=== PATIENT | female | born 1985 | race Caucasian/White ===

== ENCOUNTER → 2021-04-14 | Outpatient (CLI) | payer OTHER ==
--- NOTE | 2021-04-14 15:38 | REP ---
INDICATION: DI DI TWINS. COMPARISON: None. TECHNIQUE: Real-time sonographic evaluation of the gravid uterus performed. FINDINGS: There is a living intrauterine twin gestation, reportedly diamniotic dichorionic. Estimated gestational age is34 weeks 5 days, EDC 05/21/2021. Today's measurements indicate appropriate concordant growth. Fetus a: Presentation: Cephalic Placenta anterior, grade 2, without evidence of placenta previa. heart rate is recorded at 139 beats per minute. Amniotic fluid is subjectively normal. The deepest pocket of fluid surrounding fetus a is 4.1 cm. Biometry chart: BPD: 83 mm, 33 weeks 2 days, 28th percentile. HC: 304 mm, 33 weeks 6 days, 37th percentile AC: 312 mm, 35 weeks 1 days, 57th percentile Femur length: 64 mm, 32 weeks 6 days, 22nd percentile HC to AC ratio: 0.97, normal range 0.94-1.13. Estimated weight: 2372g, 32nd percentile. SD ratio umbilical artery 2.47, normal 1.70-3.62. RI 0.60, normal 0.46-0.72. Fetus b: Presentation: Breech Placenta posterior, grade 2, without evidence of placenta previa. heart rate is recorded at 141 beats per minute. Amniotic fluid is subjectively normal. The deepest pocket of fluid surrounding fetus B is 5.9 cm. Biometry chart: BPD: 84 mm, 33 weeks 5 days, 536th percentile. HC: 309 mm, 34 weeks 4 days, 47th percentile AC: 315 mm, 35 weeks 3 days, 61st percentile Femur length: 63 mm, 32 weeks 4 days, 17th percentile HC to AC ratio: 0.98, normal range 0.94-1.13. Estimated weight: 2413g, 36th percentile. SD ratio umbilical artery 3.46, normal range 1.70-3.62. RI 0.71, normal 0.46-0.72. IMPRESSION: Viable intrauterine twin gestation as above. Appropriate, concordant growth. <Electronically signed by Augustine Prather > 04/14/21 [id number]
== END ==
LOC: M RAD 12:51
PROVIDERS: ATTEND Obstetrics & Gynecology
DX: O30.043 Twin pregnancy, dichorionic/diamniotic, third trimester (principal); Z3A.34 34 weeks gestation of pregnancy; O32.1XX2 Maternal care for breech presentation, fetus 2

== ENCOUNTER 2021-04-25 14:16 | Outpatient (CLI) | payer OTHER ==
[~2021-04-25] VITALS: Ht 170.2 cm; Wt 123.3 kg
[2021-04-25] VITALS (11 sets, daily range): BP systolic 124–148; BP diastolic 72–100
[2021-04-25] MEDS ORDERED: MULT1TAB8 PO (14:57)
[2021-04-25] MEDS ORDERED: PRENTAB9 PO (14:57)
[2021-04-25] MEDS ORDERED: SYNT25TA PO (14:57)
[2021-04-25] MEDS ORDERED: LEVO2TA PO (14:57)
[2021-04-25 16:25] LABS: HEMOGLOBIN 13.5 g/dl (12.0-15.5); MEAN CORPUSCULAR HGB CONC 33.8 g/dl (32.0-36.5); MEAN CORPUSCULAR VOLUME 85.8 fl (80.0-96.0); PLATELET COUNT, AUTOMATED 267 10^3/uL (150-450); RED BLOOD COUNT 4.66 10^6/uL (4.00-5.40); WHITE BLOOD COUNT 7.8 10^3/uL (4.0-10.0)
[2021-04-25 16:35] LABS: ALT/SGPT 13 U/L (12-78); BILIRUBIN,TOTAL 0.7 MG/DL (0.2-1.0); CREATININE FOR GFR 0.61 MG/DL (0.55-1.30); GLOMERULAR FILTRATION RATE > 60.0 (>60); LDH LACTATE DEHYDROGENASE 174 U/L (84-246); URIC ACID 8.2 MG/DL (2.6-6.0)
[2021-04-25 17:13] LABS: CREATININE,RANDOM URINE 20.7 MG/DL; TOTAL PROTEIN,RANDOM URINE < 5.0 MG/DL (0.0-12.0)
--- NOTE | 2021-04-25 18:12 | IPNPDOC ---
Obstetrical Progress Note Date of Service Apr 25, 2021 Subjective 35 yo @ 36W3D who was sent up from clinic for extended monitoring after possible deceel noted during NST in clinic. while in triage for 4hrs, both baby had reactive, CAT Tracing, with A FHT 140, B FHT 125. Patient was also noted to have mild range bp, not meeting GHTN Criteria yet, but Pre e labs were sent and were wnl. she was noted to have irregular contractions, that she is not feeling. patient has no other concerns. she has her Next OB appointment tomorrow. Exam A-FHT: 140, Mod jcarlos,+accels, -decel---cat I tracing B-FHT: 12, MOV JCARLOS,+accels, -decel---cat I tracing [place]: irregular contractions BP: Multiple Mild range BP, NOT 4 hrs Apart A/P 35 yo @ 36W3D who was sent up from clinic for extended monitoring after possible deceel noted during NST in clinic. while in triage for 4hrs, both baby had reactive, CAT Tracing, with A FHT 140, B FHT 125. NORMAL pre e labs obtained. Given strict return precautions F/u in clinic as previously scheduled Objective Vital Signs Date Time Temp Pulse Resp B/P (MAP) Pulse Ox O2 Delivery O2 Flow Rate FiO2 04/25/21 16:05 111 18 124/85 (98) 04/25/21 14:49 99.1 CHRIS AVITIA MD Apr 25, 2021 18:12
== END 2021-04-25 18:14 | disposition home or self-care (01) ==
LOC: M LDO 14:16
PROVIDERS: ATTEND Registered Nurse Maternal Newborn
DX: O36.8330 Maternal care for abnormalities of the fetal heart rate or rhythm, third trimester, not applicable or unspecified (principal); Z3A.36 36 weeks gestation of pregnancy; O26.893 Other specified pregnancy related conditions, third trimester; R03.0 Elevated blood-pressure reading, without diagnosis of hypertension
CPT/HCPCS: 36415; 59025; 82247; 82565; 82570; 83615; 84156; 84450; 84460; 84550; 85027; G0378; G0463

== ENCOUNTER 2021-05-07 21:50 | Outpatient (CLI) | payer OTHER ==
[~2021-05-07] VITALS: Ht 170.2 cm; Wt 123.6 kg
[~2021-05-07 21:50] MED LIST: LEVO2TA PO; MULT1TAB8 PO; PRENTAB9 PO; SYNT25TA PO
[2021-05-07 22:22] VITALS: BP 141/93
[2021-05-07 22:50] VITALS: BP 141/93
[2021-05-08] MEDS ORDERED: HOME MED LIST COMPLETE! XX SCH
--- NOTE | 2021-05-08 06:53 | HPE ---
HISTORY AND PHYSICAL DATE OF ADMISSION: 05/07/2021 HISTORY OF PRESENT ILLNESS: This lady is a 35-year-old 2 para 1, LMP August 14, 2020, EDC May 21, 2021 at 38 weeks of gestation, clearly ruptured membranes. She is a late transfer of care. She has had visits with us, [facility]. She had a previous section in September 2019 at 38 weeks after induction of labor. She had arrest of descent dilated, pushed for three hours, and had a primary section. She also was diagnosed with thyroid cancer, had a thyroidectomy while she was . She is presently on Synthroid and is well-controlled. She had an elevated 1 hour GTT at 156. She has had a 3 hour GGT, fasting was 87, 1 hour was 146, 2 hour 144 and 3 hour was 129. She is GBS positive in the urine and was treated appropriately. PHYSICAL EXAMINATION: On examination today, she has no contractions. She is in no acute distress. She came in with a dry pad. Fundus height is 45. Ultrasound performed, we had Twin A with AIFs in three quadrants of 10.43 with the smallest vertical pocket of 2.96. Twin B on the left, the total fluid 7.90 with the smallest pocket vertical of 2.21. First baby is presenting as vertex, the second baby is transverse lie with the head to the left. Active fetuses on both. Cardiac activity on both were noted. Cervix was closed, posterior and 1-2 cm. Sterile speculum examination: No mucous. No evidence or ruptured membranes. Nitrazine was negative. Slide was negative for ferning. Patient had a reactive strip x2. Patient was counseled regarding premature rupture of membranes, bleeding, decreased movements, and when to call the provider. The patient is electively booked for induction of labor in 24 hours. She is to maintain herself at home and Labor and Delivery will call when a bed is available. Patient expressed an understanding of both. She was discharged undelivered. Her blood pressure was 141/93, respirations 18, pulse 116, temperature 98.5. In summary, we have a term gestation, di-di twins for induction of labor tomorrow with negative ruptured membranes. Patient was discharged undelivered. cc: [facility]
== END 2021-05-07 22:50 | disposition home or self-care (01) ==
LOC: M LDO 21:50
PROVIDERS: ATTEND Obstetrics & Gynecology
DX: O47.1 False labor at or after 37 completed weeks of gestation (principal); Z3A.38 38 weeks gestation of pregnancy; O30.043 Twin pregnancy, dichorionic/diamniotic, third trimester; O34.219 Maternal care for unspecified type scar from previous cesarean delivery
CPT/HCPCS: 59025; 76815; G0378; G0463

== ENCOUNTER 2021-05-09 07:03 | Inpatient (IN) | payer OTHER ==
[2021-05-09] VITALS (9 sets, daily range): BP systolic 139–168; BP diastolic 72–94
[~2021-05-09] VITALS: Ht 170.2 cm; Wt 122.6 kg
[2021-05-09] MEDS ORDERED: OXYTOCIN INJ 10 UNITS/ML VIAL (J2590) IV PRN (07:40)
[2021-05-09] MEDS ORDERED: BICITRA 30ML SOLN UDC PO ONE (07:40)
[2021-05-09] MEDS ORDERED: METHYLERGONOVINE MALEATE 0.2 MG/ML VIAL (J2210) IM PRN (07:40)
[2021-05-09] MEDS ORDERED: ACETAMINOPHEN 650 MG SUPP PR SCH (07:40)
[2021-05-09] MEDS ORDERED: OXYTOCIN DRIP 30 UNITS in IV 1 EA IV PRN (07:40)
[2021-05-09] MEDS ORDERED: BUPIVACAINE HCL 0.25% 10ML VIAL SC SCH (07:40)
[2021-05-09] MEDS ORDERED: LACTATED RINGER'S 1000 ML IV ONE (07:40)
[2021-05-09] MEDS ORDERED: ACETAMINOPHEN 650 MG SUPP PR ONE (07:55)
[2021-05-09] MEDS ORDERED: BUPIVACAINE HCL 0.25% 10ML VIAL SC ONE (07:55)
[2021-05-09] MEDS ORDERED: ceFAZolin SOD 2 GM in IV 1 EA IV ONE (08:00)
[2021-05-09] MEDS ORDERED: AZITHROMYCIN INJ 500 MG, VIAL MATE ADAPTER 1 EACH in NS 250 ML IV ONE (08:00)
[2021-05-09 08:10] LABS: HEMATOCRIT 39.5 % (36.0-47.0); HEMOGLOBIN 12.9 g/dl (12.0-15.5); MEAN CORPUSCULAR HEMOGLOBIN 28.2 pg (27.0-33.0); MEAN CORPUSCULAR HGB CONC 32.7 g/dl (32.0-36.5); MEAN CORPUSCULAR VOLUME 86.4 fl (80.0-96.0); PLATELET COUNT, AUTOMATED 238 10^3/uL (150-450); RED BLOOD COUNT 4.57 10^6/uL (4.00-5.40)
[2021-05-09] MEDS ORDERED: HOME MED LIST COMPLETE! XX SCH (08:15)
[2021-05-09] MEDS ORDERED: MORPHINE PRES-FREE INJ 10 MG/10 ML VIAL (J2274) As Ordered ONE (08:41)
[2021-05-09] MEDS ORDERED: OXYTOCIN 30 UNITS IN 0.9% NaCl 500ML IV BAG (J2590) As Ordered ONE ×2 (09:09→13:16)
[2021-05-09] MEDS: LR 1,000 ML IV SCH ×3 (09:14→23:56)
[2021-05-09] MEDS ORDERED: ONDANSETRON 4MG/2ML VIAL As Ordered ONE (09:57)
[2021-05-09] MEDS ORDERED: dexameTHASONE 4 MG/ML 1ML VIAL (J1100 PER 1MG) As Ordered ONE (09:58)
[2021-05-09] MEDS ORDERED: METOCLOPRAMIDE INJ 10MG/2ML VIAL (J2765 PER 1) IV PRN ×2 (10:12→12:30)
[2021-05-09] MEDS ORDERED: NALBUPHINE HCL 10 MG/ML AMP (J2300) IV PRN (10:12)
[2021-05-09] MEDS ORDERED: diphenhydrAMINE 50MG/ML VIAL (J1200) IV PRN (10:12)
[2021-05-09] MEDS ORDERED: NALOXONE INJ 0.4MG/1ML VIAL (J2310 PER 1MG) IV PRN ×2 (10:12)
[2021-05-09] MEDS ORDERED: ONDANSETRON 4MG/2ML VIAL IV PRN ×2 (10:12→12:30)
[2021-05-09] MEDS ORDERED: PHENYLephrine 500MCG 5ML (100MCG/ML) SYRINGE As Ordered ONE (10:27)
[2021-05-09] MEDS ORDERED: ePHEDrine SULFATE 25 MG/5 ML(5MG/ML) SYRINGE As Ordered ONE ×2 (10:27→10:50)
[2021-05-09] MEDS ORDERED: KETOROLAC 60MG 2ML VIAL As Ordered ONE (10:31)
[2021-05-09] MEDS ORDERED: OXYTOCIN INJ 10 UNITS/ML VIAL (J2590) As Ordered ONE (11:04)
[2021-05-09 11:22] LABS: CORD GAS ABE V -4.8; CORD GAS HCO3 V 22.5 MEQ/L; CORD GAS O2 SAT V 69.7 %; CORD GAS PH V 7.272 UNITS; CORD GAS PO2 V 31.1 mmHg; CORD GAS SBC V 19.9 MEQ/L; CORD GAS TCO2 V 24.1 MEQ/L
[2021-05-09 11:24] LABS: CORD GAS ABE A -2.9; CORD GAS HCO3 A 25.7 MEQ/L; CORD GAS O2 SAT A 20.1 %; CORD GAS PCO2 A 60.9 mmHg; CORD GAS PH A 7.244 UNITS; CORD GAS PO2 A 12.4 mmHg; CORD GAS SBC A 20.1 MEQ/L; CORD GAS TCO2 A 27.6 MEQ/L
[2021-05-09 11:28] LABS: CORD GAS ABE A -8.1; CORD GAS ABE V -3.9; CORD GAS HCO3 A 22.3 MEQ/L; CORD GAS HCO3 V 25.7 MEQ/L; CORD GAS O2 SAT A 34.7 %; CORD GAS O2 SAT V 55.4 %; CORD GAS PCO2 A 66.6 mmHg; CORD GAS PCO2 V 65.5 mmHg; CORD GAS PH A 7.143 UNITS; CORD GAS PH V 7.211 UNITS; CORD GAS PO2 A 20.8 mmHg; CORD GAS SBC A 16.6 MEQ/L; CORD GAS SBC V 20.2 MEQ/L; CORD GAS TCO2 A 24.4 MEQ/L; CORD GAS TCO2 V 27.7 MEQ/L
[2021-05-09] MEDS ORDERED: OXYTOCIN DRIP 30 UNITS in IV 1 EA IV ONE (11:55)
[2021-05-09] MEDS ORDERED: METHYLERGONOVINE MALEATE 0.2 MG TAB PO PRN (11:55)
[2021-05-09] MEDS ORDERED: DOCUSATE SODIUM 100MG CAPSULE PO PRN (11:55)
[2021-05-09] MEDS ORDERED: ACETAMINOPHEN TAB 650MG DOSE (2X325MG) PO PRN (11:55)
[2021-05-09] MEDS ORDERED: MOM 30ML SUSPENSION UDC PO PRN (11:55)
[2021-05-09] MEDS ORDERED: ACETAMINOPHEN 500 MG TAB PO PRN (11:55)
[2021-05-09] MEDS ORDERED: SIMETHICONE 80MG CHEW TAB PO PRN (11:55)
[2021-05-09] MEDS ORDERED: MEASLES,MUMPS,RUBELLA VACCINE INJ (MMR-II) (90707) SC SCH (11:55)
[2021-05-09] MEDS ORDERED: ANUSOL HC CREAM 30GM TOP PRN (11:55)
[2021-05-09] MEDS ORDERED: RHOGAM 300 MCG (1500 IU) INJ (J2790) IM SCH (11:55)
[2021-05-09] MEDS ORDERED: PERCOCET 5MG/325MG TAB PO PRN ×3 (11:55→12:30)
[2021-05-09] MEDS ORDERED: LR 1,000 ML IV SCH (12:30)
[2021-05-09] MEDS ORDERED: fentaNYL 100 MCG/2 ML INJECTION (J3010) IV PRN (12:30)
[2021-05-09] MEDS ORDERED: MEPERIDINE INJ 25 MG/ML VIAL (J2175) IV PRN (12:30)
[2021-05-09] MEDS: KETOROLAC 30 MG/ML 1ML VIAL IV SCH (17:36)
--- NOTE | 2021-05-09 19:44 | RO ---
OPERATIVE NOTE DATE OF OPERATION: 05/09/2021 PREOPERATIVE DIAGNOSES: 1. Di/di twins at 38+ weeks of gestation. 2. History of thyroid cancer. 3. Previous section. OPERATION PROPOSED: 1. Repeat section. 2. Bilateral tubal ligation by Filshie clip. POSTOPERATIVE DIAGNOSES: 1. Repeat section. 2. Satisfied parity. 3. Bilateral tubal ligation by Filshie clip. ANESTHESIA: Spinal plus local anesthetic for intraperitoneal procedures. ESTIMATED BLOOD LOSS: 600 mL. SURGEON: Dr. Varghese Root SWITCHBOARD OPERATOR RECEPTIONIST: Dr. Alexandra for assistance with retraction and visualization, without which the procedure could not be completed, PROCEDURE IN DETAIL: After adequate time-out, prepped and draped in the supine position, Rosario catheter in the bladder draining clear urine, sequentials in place, appropriate antibiotics preoperatively, acetaminophen suppository 1300 mg per rectum, a Pfannenstiel incision was made two finger breadths above the symphysis pubis, passing through abdominal layers, securing hemostasis. Opening peritoneal cavity, we noticed a very thin lower uterine segment. The bladder was reflected down anteriorly. A Mobius was placed into the abdomen and then a low transverse incision was made, an ARM draining clear liquor, approximately 350 mL of amniotic fluid. We delivered a livebirth Twin A male infant weighing 3240 grams, 7 pounds 2 ounces, Apgars of 9/9 and one and five minutes respectively. Arterial pH was 7.24, base excess -2.9. Venous pH was 7.27, base excess -4.8. The uterus contracted down. The first cord was marked with an umbilical cord. The second baby started to descend on its own as a double footling breech and through the bulging membranes, had a spontaneous delivery out of the incision up to the shoulders after which ARM was done draining clear liquor, and we delivered assistedly the shoulders and the head, a livebirth Twin B male, weighing 3160 grams, six pounds 15 ounces, Apgars 9/9 at one and five minutes respectively. Arterial pH was 7.14, base excess -8.1. Venous pH was 7.21, base excess -3.9. Placentas were removed and sent to pathology under separate covers. Sweeping out the uterus, there was no evidence of retained placenta or tissue. The uterus contracted well down under Pitocin. The lower segment was oversewn in the usual fashion in two layers, imbricating the second layer and reperitonealizing. With instrument and pad count correct, both ovaries and tubes appeared to be normal. We asked the patient again if she wished to have permanent sterilization. She responded in the affirmative. Bilateral Filshie clips were applied circumferentially around the mid segment of the tube. A stay suture was placed proximal to the Filshie clip. Tubes were replaced back in the abdomen, and again examining the uterine lower segment, it was clean and dry. The Mobius was removed. The abdomen was then closed with running stitch for the peritoneum, the same for the fascia, interrupted for the subcutaneous, Marcaine 0.25% to the skin. Dexon subcuticular was placed. A Mepore dressing was placed. Misoprostol 1000 mg was placed per rectum prophylactically because of twins. The patient was sent to the recovery room in good condition. Janene [facility]
[2021-05-10] MEDS: KETOROLAC 30 MG/ML 1ML VIAL IV SCH ×2 (00:01→05:47)
[2021-05-10] MEDS: LEVOTHYROXINE 75MCG TABLET (0.075MG) PO SCH (06:21)
[2021-05-10 07:03] LABS: HEMATOCRIT 31.5 % (36.0-47.0); MEAN CORPUSCULAR HEMOGLOBIN 28.8 pg (27.0-33.0); MEAN CORPUSCULAR HGB CONC 33.7 g/dl (32.0-36.5); MEAN CORPUSCULAR VOLUME 85.6 fl (80.0-96.0); PLATELET COUNT, AUTOMATED 239 10^3/uL (150-450); RED BLOOD COUNT 3.68 10^6/uL (4.00-5.40); WHITE BLOOD COUNT 14.6 10^3/uL (4.0-10.0)
[2021-05-10 07:11] LABS: HEMOGLOBIN 10.6 g/dl (12.0-15.5)
[2021-05-10] MEDS: PRENATAL VITAMINS CHEWABLE TABLET PO SCH (08:36)
[2021-05-10 10:00] VITALS: BP 137/87
--- NOTE | 2021-05-10 12:29 | IPN ---
PROGRESS NOTE DATE: 05/10/2021 FIRST DAY AND POSTOPERATIVE SUBJECTIVE: This lady is a 35-year-old 3, now para 3, who was admitted for repeat section and bilateral tubal ligation by Fillexi wagner. She delivered a male Twin A, 7 pounds, 2 ounces at 3240 grams, Apgars of 9 and 9 at 1 and 5 minutes respectively, Twin B, 3160 grams, 6 pounds, 15 ounces, Apgars of 9 and 9 at 1 and 5 minutes respectively. On her first day we discussed phlebitis, cystitis, mastitis, endometritis, cellulitis, diet, exercise, pain management, perineal, breast and wound care. OBJECTIVE: Presently, her blood pressure is 139/86, respirations 18, pulse is 86, temperature is 98.1. Her blood pressures are trending in the mid range blood pressure. She had one severe range at 1618 on 05/09, otherwise she has been within normal limits. No evidence of headache, right upper quadrant pain, blurry vision, no edema. Her admitting hemoglobin was 12.9, hematocrit 39.5, platelets 238,000. day #1 hemoglobin 10.6, hematocrit 31.5 and platelets are 239,000. PLAN: Monitor over the next 24 hours regarding her blood pressure. Patient is voiding and passing gas. The uterus is two below. Bowel sounds are noted. The incision is clean and dry. Lochia is moderate. We had planned on doing circumcision on male babies have been reviewed by neonatology. Patient will fruit or nut picker her meds at [facility]. She will have a two week incision check and a six week check at [facility]. All questions were answered. Patient has satisfactory control regarding pain management. cc: [facility]
[2021-05-10 14:00] VITALS: BP 136/84
[2021-05-10 18:00] VITALS: BP 141/96
[2021-05-10 22:00] VITALS: BP 129/79
[2021-05-10] MEDS: IBUPROFEN 600MG TAB PO PRN (22:54)
[2021-05-11 02:00] VITALS: BP 117/65
[2021-05-11] MEDS: LEVOTHYROXINE 75MCG TABLET (0.075MG) PO SCH (05:47)
[2021-05-11 06:00] VITALS: BP 141/81
[2021-05-11] MEDS ORDERED: IBUP-1022 PO (07:46)
[2021-05-11] MEDS ORDERED: PERCOCET PO (07:46)
--- NOTE | 2021-05-11 07:49 | DS.PDOC ---
Discharge Summary General Date of Admission May 09, 2021 at 07:03 Date of Discharge May 11, 2021 Discharge Summary HOSPITAL COURSE: Ms. Funes is a 35 yo G2 now P3 who underwent an uncomplicated RLTCS on 09May2021 for di/di twin gestation, malpresentation, and history of prior c section. She had some elevated BPs before her c section and but she has not had any severely elevated readings over the last 24 hours. Her postoperative course was otherwise uncomplicated. On her day of discharge she met all appropriate discharge criteria. She was ambulating, voiding, tolerating a regular diet, passing gas, had minimal lochia, and her pain was well controlled with PO pain medications. DISCHARGE MEDICATIONS: Please see below. ALLERGIES: Please see below. PHYSICAL EXAMINATION ON DISCHARGE: VITAL SIGNS: Please see below. GENERAL: Sitting up in bed, AAOX3, NAD ABDOMINAL EXAMINATION: Soft. Fundus firm at U-1. No fundal tenderness. Optifoam dressing in place over incision. No strikethrough. Minimal tenderness to palpation. EXTREMITIES: trace edema PSYCHIATRIC EXAMINATION: Affect appropriate ACTIVITY: Pelvic rest for 6 weeks. No heavy lifting for 6 weeks. DIET: Regular DISCHARGE PLAN: Discharge home DISPOSITION: Discharge home on 11May2021. DISCHARGE INSTRUCTIONS: 1. No heavy lifting for 6 weeks. Pelvic rest for 6 weeks. 2. channel supervisor medication. ITEMS TO FOLLOWUP ON ON OUTPATIENT: 1. channel supervisor medication at [place] 2. Walk into the [facility] office on Saturday for a BP check between 0730 - 1600. DISCHARGE CONDITION: Stable. TIME SPENT ON DISCHARGE: 20 minutes. Vital Signs/I&Os Vital Signs Date Time Temp Pulse Resp B/P (MAP) Pulse Ox O2 Delivery O2 Flow Rate FiO2 05/11/21 06:00 98.4 97 18 141/81 (101) 97 Room Air I&O- Last 24 Hours up to 6 AM 05/11/21 05:59 Intake Total 240 ml Balance 240 ml Discharge Medications Scheduled Levothyroxine Sodium (Synthroid) 25 Mcg Tablet, 25 MCG PO DAILY, (Reported) Levothyroxine Sodium (Synthroid) 200 Mcg Tablet, 200 MCG PO DAILY, (Reported) No.137/Iron/Folic Acd ( Vitamin Tablet) 1 Each Tablet, 1 TAB PO DAILY, (Reported) Scheduled PRN Ibuprofen (Ibuprofen) 600 Mg Tablet, 600 MG PO Q6HP PRN for PAIN LEVEL 1-5 Oxycodone/Acetaminophen (Oxycodone-Acetaminophen 5-325) 1 Each Tablet, 1 TAB PO Q4H PRN for MODERATE PAIN (PS 5-7) Miscellaneous Medications Multivitamin (Multi-Vitamin Daily) 1 Each Tablet, 1 TAB PO, (Reported) Allergies Coded Allergies: No Known Allergies (Unverified , 04/25/21) SKYLER QUIÑONES DO May 11, 2021 07:49
[2021-05-11] MEDS: IBUPROFEN 600MG TAB PO PRN (08:50)
[2021-05-11] MEDS: PRENATAL VITAMINS CHEWABLE TABLET PO SCH (08:50)
--- NOTE | 2021-05-13 18:45 | IPN ---
PROGRESS NOTE DATE: 05/09/2021 SUBJECTIVE: This patient requested circumcision of her male infant, twin A. After discussing risks and benefits of circumcision, the medical and nonmedical indications, the penile block and aftercare, expressed understanding of penile block, aftercare and bleeding, signed the consent form. All questions were answered, 20 minute discussion. We await clearance by the circulation representative.
--- NOTE | 2021-05-13 18:45 | IPN ---
PROGRESS NOTE DATE: 05/10/2021 SUBJECTIVE: This patient requested circumcision of her male infant, twin B. After discussing risks and benefits of circumcision, the medical and nonmedical indications, the penile block and aftercare, expressed understanding of penile block, aftercare and bleeding, signed the consent form. All questions were answered, 20 minute discussion. We await clearance by the office machine installer.
== END 2021-05-11 13:50 | disposition home or self-care (01) | DRG 785 ==
LOC: M LDI 07:03 → M OBS 13:50
PROVIDERS: ADMIT Obstetrics & Gynecology; ATTEND Obstetrics & Gynecology
PROC: 0UL70CZ Occlusion of Bilateral Fallopian Tubes with Extraluminal Device, Open Approach (ICD-10-PCS; 2021-05-09)
PROC: 10D00Z1 Extraction of Products of Conception, Low, Open Approach (ICD-10-PCS; principal; 2021-05-09 09:30)
DX: O34.211 Maternal care for low transverse scar from previous cesarean delivery (principal); O30.043 Twin pregnancy, dichorionic/diamniotic, third trimester; Z3A.38 38 weeks gestation of pregnancy; Z37.2 Twins, both liveborn; Z30.2 Encounter for sterilization; O64.8XX2 Obstructed labor due to other malposition and malpresentation, fetus 2

== ENCOUNTER → 2021-05-29 | Outpatient (CLI) | payer OTHER ==
[~2021-05-29] MED LIST changes: +IBUP-1022 PO; +PERCOCET PO
[2021-05-29 13:05] LABS: FREE T4 1.37 NG/DL (0.76-1.46); THYROID STIMULATING HORMONE 0.161 uIU/ML (0.358-3.740)
[2021-05-30 13:08] LABS: THRYOGLOBULIN ANTIBODIES (ATA) < 1.0 IU/mL (0.0-0.9); THYROGLOBULIN QUANTITATIVE < 0.1 ng/mL (1.5-38.5)
== END ==
LOC: M PLALAB 10:43
PROVIDERS: ATTEND Nurse Practitioner Family
DX: E89.0 Postprocedural hypothyroidism (principal); C73 Malignant neoplasm of thyroid gland

== ENCOUNTER → 2021-10-26 | Outpatient (CLI) | payer OTHER ==
[2021-10-26 16:16] LABS: FREE T4 1.38 NG/DL (0.76-1.46); THYROID STIMULATING HORMONE < 0.005 uIU/ML (0.358-3.740)
== END ==
LOC: M PLALAB 14:18
PROVIDERS: ATTEND Nurse Practitioner Family
DX: E89.0 Postprocedural hypothyroidism (principal)

== ENCOUNTER → 2022-01-19 | Outpatient (CLI) | payer OTHER ==
[2022-01-19 14:14] LABS: FREE T4 1.26 NG/DL (0.76-1.46); THYROGLOBULIN ANTIBODY 19.8 U/ML (<60.0); THYROID STIMULATING HORMONE 0.032 uIU/ML (0.358-3.740)
[2022-01-20 11:10] LABS: THRYOGLOBULIN ANTIBODIES (ATA) < 1.0 IU/mL (0.0-0.9); THYROGLOBULIN QUANTITATIVE < 0.1 ng/mL (1.5-38.5)
== END ==
LOC: M PLALAB 12:08
PROVIDERS: ATTEND Nurse Practitioner Family
DX: E89.0 Postprocedural hypothyroidism (principal); C73 Malignant neoplasm of thyroid gland

== ENCOUNTER 2022-03-05 15:44 | Emergency (ER) | payer OTHER ==
[~2022-03-05] VITALS: Ht 170.2 cm; Wt 100.7 kg
[2022-03-05 18:43] LABS: CK-MB VALUE MASS 1.5 NG/ML (<3.6); MB/CK RELATIVE INDEX 1.4 (< OR =4)
[2022-03-05 18:48] LABS: ALBUMIN 4.1 GM/DL (3.2-5.2); ALT/SGPT 24 U/L (12-78); BILIRUBIN,DIRECT 0.2 MG/DL (0.0-0.2); BILIRUBIN,TOTAL 0.7 MG/DL (0.2-1.0); BLOOD UREA NITROGEN 17 MG/DL (7-18); CALCIUM LEVEL 9.9 MG/DL (8.5-10.1); CARBON DIOXIDE LEVEL 24 MEQ/L (21-32); CHLORIDE LEVEL 109 MEQ/L (98-107); CREATININE FOR GFR 0.79 MG/DL (0.55-1.30); FREE T4 1.18 NG/DL (0.76-1.46); GLOMERULAR FILTRATION RATE > 60.0 (>60); GLUCOSE, FASTING 81 MG/DL (70-100); LIPASE 110 U/L (73-393); POTASSIUM SERUM 4.6 MEQ/L (3.5-5.1); SODIUM LEVEL 140 MEQ/L (136-145); THYROID STIMULATING HORMONE 0.091 uIU/ML (0.358-3.740)
[2022-03-05 20:01] LABS: BASO % 0.4 % (0.0-1.0); EOS # 0.2 10^3/uL (0.0-0.5); HEMATOCRIT 42.6 % (36.0-47.0); HEMOGLOBIN 14.3 g/dl (12.0-15.5); LYMPH # 2.8 10^3/uL (1.5-5.0); LYMPH % 37.5 % (24.0-44.0); MEAN CORPUSCULAR HEMOGLOBIN 28.8 pg (27.0-33.0); MEAN CORPUSCULAR HGB CONC 33.6 g/dl (32.0-36.5); MEAN CORPUSCULAR VOLUME 85.7 fl (80.0-96.0); MONO # 0.5 10^3/uL (0.0-0.8); MONO % 6.8 % (2.0-8.0); NEUTROPHILS % 52.9 % (36.0-66.0); PLATELET COUNT, AUTOMATED 289 10^3/uL (150-450); RED BLOOD COUNT 4.97 10^6/uL (4.00-5.40); WHITE BLOOD COUNT 7.5 10^3/uL (4.0-10.0)
[2022-03-05 20:41] LABS: HCG, SERUM QUALITATIVE NEGATIVE (NEGATIVE)
[2022-03-05] MEDS ORDERED: ISOVUE-370 76% 100ML VIAL As Ordered ONE (20:42)
[2022-03-05 22:55] VITALS: BP 130/91
== END 2022-03-05 22:57 | disposition home or self-care (01) ==
LOC: M ED 15:44
DX: R94.6 Abnormal results of thyroid function studies (principal); R00.2 Palpitations; Z79.890 Hormone replacement therapy
CPT/HCPCS: 71045; 71275; 80048; 80076; 82550; 82553; 83690; 84439; 84443; 84484; 84703; 85025; 85379; 86618; 93005; 99284; Q9967

== ENCOUNTER 2022-03-07 08:16 | Emergency (ER) | payer OTHER ==
[~2022-03-07] VITALS: Ht 170.2 cm; Wt 100.3 kg
[2022-03-07 11:36] VITALS: BP 129/86
== END 2022-03-07 11:41 | disposition home or self-care (01) ==
LOC: M ED 08:16
DX: S86.912A Strain of unspecified muscle(s) and tendon(s) at lower leg level, left leg, initial encounter (principal); M62.838 Other muscle spasm; X58.XXXA Exposure to other specified factors, initial encounter; Y92.9 Unspecified place or not applicable; Y93.9 Activity, unspecified; Y99.9 Unspecified external cause status; E03.9 Hypothyroidism, unspecified; Z79.890 Hormone replacement therapy

== ENCOUNTER → 2022-11-22 | Outpatient (REF) | payer OTHER | LOC: M LAB REF 17:00 | PROVIDERS: ATTEND Nurse Practitioner Family | DX: C73 Malignant neoplasm of thyroid gland (principal) ==

== ENCOUNTER → 2022-12-19 | Outpatient (CLI) | payer OTHER ==
[2022-12-19 10:32] LABS: THYROID STIMULATING HORMONE 3.361 uIU/ML (0.55-4.78)
[2022-12-19 10:33] LABS: FREE T4 1.28 NG/DL (0.89-1.76)
== END ==
LOC: M PLALAB 12-18 16:29
PROVIDERS: ATTEND Nurse Practitioner Family
DX: E89.0 Postprocedural hypothyroidism (principal)

== ENCOUNTER → 2024-01-08 | Outpatient (CLI) | payer OTHER | LOC: M WHC 10:36 | PROVIDERS: ATTEND Family Medicine | DX: N63.0 Unspecified lump in unspecified breast (principal); Z85.850 Personal history of malignant neoplasm of thyroid; Z80.3 Family history of malignant neoplasm of breast; R92.323 Mammographic fibroglandular density, bilateral breasts | CPT/HCPCS: 77066; G0279 ==